=== PATIENT | female | born 1965 | race Caucasian/White ===

== ENCOUNTER 2024-09-07 09:57 | Emergency (ER) | payer OTHER, SELFPAY ==
[2024-09-07] VITALS (8 sets, daily range): BP systolic 157–174; BP diastolic 88–110; PULSE 91–118; RESP 18–19; TEMP 36.2–36.6; O2SAT 96–98; BMI 33.2
--- NOTE | ~2024-09-07 | CT_ITS ---
EXAMINATION: CT HEAD WITHOUT CONTRAST CLINICAL INFORMATION: Headache and dizziness. COMPARISON: None available. TECHNIQUE: Contiguous axial imaging was performed from the skull base to vertex without intravenous administration of contrast. This CT examination was performed using dose optimization techniques as appropriate, variously including the following: *Automated exposure control *Adjustment of mA and/or kV according to patient size (this includes techniques or standardized protocols for targeted exams where dose is matched to indication/reason for exam; i.e. extremities or head) *Use of iterative reconstruction technique FINDINGS: There is no evidence of intracranial hemorrhage or extra-axial fluid collection. There is no mass effect, or edema. No CT evidence of acute territorial infarct. Ventricles, sulci, and cisterns are normal in size and configuration for patient age. No hydrocephalus. No midline shift. Negative hyperdense MCA sign. Negative insular ribbon sign. No significant white matter abnormalities. Normal pituitary gland. Globes and orbital contents image normally. No extracranial soft tissue abnormalities. The paranasal sinuses, mastoid air cells, and tympanic cavities are normally aerated. No suspicious bony abnormalities. Mild hyperostosis frontalis. There are no acute fractures evident. CT/CT head/brain wo IV con IMPRESSION: No acute intracranial abnormality. Essentially normal examination. Electronically signed by: Marco Manning MD 09/07/2024 03:11 PM EDT
--- NOTE | ~2024-09-07 | XR_ITS ---
EXAMINATION: XR CHEST CLINICAL INFORMATION: Dizziness COMPARISON: None available. TECHNIQUE: Frontal view of the chest was obtained. FINDINGS: No significant abnormality is noted involving the heart, lungs, mediastinum, bony thorax or soft tissues. XR/XR chest 1V IMPRESSION: Unremarkable chest examination. Electronically signed by: Amanuel Martinez MD 09/07/2024 01:42 PM EDT RP
--- NOTE | 2024-09-07 10:24 | ECG_ITS ---
Test Reason : diziness Blood Pressure : */* mmHG Vent. Rate : 105 BPM Atrial Rate : 105 BPM P-R Int : 164 ms QRS Dur : 84 ms QT Int : 338 ms P-R-T Axes : 45 -19 49 degrees QTcB Int : 446 ms Sinus tachycardia Moderate voltage criteria for LVH, may be normal variant ( R in aVL , [place] product ) Borderline ECG When compared with ECG of 24-Apr-2012 20:40, MANUAL COMPARISON REQUIRED PREVIOUS ECG IS INCOMPATIBLE Referred By: Generic ED Physician Electronically Signed By: Yaya Solis
[2024-09-07] MEDS: 0.9 % Sodium Chloride 1,000 ML 999 ML IV (10:49)
[2024-09-07 10:52] LABS: MANUAL DIFF FLAG NO
[2024-09-07 10:54] LABS: Basophils Absolute Auto 0.1 X10*3/uL (0.0-0.2); Basophils Percent Auto 0.9 % (0-2); Eosinophils Absolute Auto 0.2 X10*3/uL (0.0-0.4); Eosinophils Percent Auto 2.6 % (0-4); Hematocrit 44.6 % (37.0-47.0); Imm Gran Abs Auto 0.03 X10*3/uL (0.00-0.03); Imm Gran Pct Auto 0.4 % (0.0-0.4); Lymphocytes Absolute Auto 2.8 X10*3/uL (1.2-4.9); Lymphocytes Percent Auto 37.3 % (20-40); Mean Corpuscular HGB Conc 35.9 g/dl (31.0-35.0); Mean Corpuscular Hemoglobin 32.6 pg (27.0-33.0); Mean Corpuscular Volume 90.8 fL (80.0-98.0); Mean Platelet Volume 10.1 fL (9.4-12.3); Monocytes Absolute Auto 0.5 X10*3/uL (0.1-1.2); Monocytes Percent Auto 7.3 % (2-11); Neutrophils Absolute Auto 3.8 x10*3/uL (2.0-8.3); Neutrophils Percent Auto 51.5 % (45-73); Platelet Count 151 X10*3/uL (160-400); Red Blood Count 4.91 X10*6/uL (4.20-5.50); Red Cell Distribution Width 12.6 % (11.0-16.0); White Blood Count 7.4 X10*3/uL (4.8-10.8)
[2024-09-07 11:10] LABS: Alanine Aminotransferase 73 U/L (0-31); Albumin Level 4.1 g/dL (3.5-5.0); Alkaline Phosphatase 159 U/L (39-117); Anion Gap 16 (12-20); Aspartate Amino Transferase 70 U/L (5-31); Bilirubin Direct 0.2 mg/dL (0.0-0.5); Bilirubin Total 0.8 mg/dL (0.0-1.0); Blood Urea Nitrogen 9 mg/dL (9-16); Calcium 9.6 mg/dL (8.4-10.2); Carbon Dioxide 23 mmol/L (22-29); Chloride 104 mmol/L (96-108); Creatinine Clr Calc Pharmacy 117.7; Estimated Glomerular Filt Rate > 60; Glucose Random 329 mg/dL (60-115); Lipase 72 U/L (8-78); Magnesium 1.5 mg/dL (1.6-2.6); Potassium 3.9 mmol/L (3.3-5.1); Sodium 139 mmol/L (135-145); Total Protein 7.5 g/dL (6.5-8.0)
[2024-09-07 11:31] LABS: Influenza A PCR NEGATIVE (Negative); Influenza B PCR NEGATIVE (Negative); Resp Syncy Virus RNA Qual PCR NEGATIVE (Negative); SARS COV2 PCR INHOUSE NEGATIVE (Negative)
[2024-09-07 12:19] LABS: Appearance Urine Cloudy; Color Urine Dark Yellow; Glucose Urine UA >=1000 mg/dL (Negative); Leukocyte Esterase Urine Negative (Negative); Nitrite Urine Negative (Negative); PH 5.5 (5.0-9.0); Specific Gravity - Urine >= 1.030 (1.005-1.025); UMIC TRIGGER UACC YES; Urine Blood Large (3+) (Negative); Urine Ketones 40 mg/dL (Negative); Urine Protein 100 (2+) mg/dL (Neg-Trace)
[2024-09-07 12:58] LABS: Bacteria Urine 4+ (None Seen); Hyaline Casts Urine 0-2 /LPF (0-2); RBC Urine 0-2 /HPF (0-2); UACC Culture Trigger YES
--- NOTE | 2024-09-07 12:58 | ED_ITS ---
HPI - Dizziness General Chief Complaint: Dizziness Stated Complaint: dizziness/ Vertigo Time Seen by Provider: 09/07/24 12:41 Source: patient, EMS, RN notes reviewed and old records reviewed Mode of arrival: EMS History of Present Illness ED Provider: Asia Manning PA-C HPI Narrative: 59-year-old female with a past medical history of diabetes, presenting to the ED via EMS complaining of dizziness described as room spinning and lightheadedness, nausea, and headache x 3 days. States dizziness worse with position changes, improves with rest. Admits ran out of her Cymbalta on , has missed 4 days, states she called to have refill however they need to contact her doctor. Also reports difficulty controlling her sugars, states POC is has been in the 300s despite compliance with medications. Denies vision change or loss, vomiting, diarrhea, CP/SOB, dysuria/hematuria, travel, ear pain Related Data Previous Rx's ?Medication ?Instructions ?Recorded meclizine 25 mg tablet 25 mg PO TID PRN dizziness #14 tabs 09/07/24 Allergies Allergy/AdvReac Type Severity Reaction Status Date / Time latex [LATEX] Allergy Mild RASH Verified 09/07/24 10:35 Sulfa (Sulfonamide Allergy Unknown HIVES Verified 09/07/24 10:35 Antibiotics) [SULFA(SULFONAMIDE ANTIBIOTICS)] sulfa Allergy Unknown rash Uncoded 01/24/18 00:00 Review of Systems 2 Review of Systems: Yes all other systems are reviewed and are negative Constitutional: Constitutional: Reports as per HPI Neurologic: Denies Abnormal speech present [facility] Past Medical History Attestation statement: The following information was validated with the patient. Source: old records reviewed Physical Exam 2 Vital Signs: Vital Signs: Last Vital Signs Temp 98 F 09/07/24 15:51 Pulse 91 09/07/24 15:51 Resp 19 09/07/24 15:51 BP 157/88 H 09/07/24 15:51 Pulse Ox 97 09/07/24 15:51 O2 Del Method Room Air 09/07/24 15:51 BMI result Body Mass Index 33.2 Const: General: cooperative, healthy appearing and no acute distress O rientation/consciousness: patient oriented x3 Limitations: no limitations HEENT: Head: Yes normal to inspection and Yes atraumatic Ears: hearing grossly normal bilaterally General nose exam: Normal external nose present Face and sinus: Yes normal facial exam Eyes: General: appearance normal, both eyes and all related structures P upils: Equal, round and reactive pupils present EOM: EOMs intact bilaterally and Nystagmus present Neck: Neck: Yes normal visual inspection and Yes no meningeal signs Resp: Effort & Inspection: normal respiratory effort and no respiratory distress Auscultation: clear to auscultation bilaterally Cardio: Rate: regular rate Heart sounds: S1 normal heart sound present and S2 normal heart sound present GI: Inspection: Yes normal to inspection Palpation (GI): Soft to palpation, nontender, no guarding and not rigid : General: Yes no CVA tenderness Back/Spine/Pelvis: Back: no CVA tenderness Skin: Rashes: no rashes Wounds: no wounds Neuro: General: patient oriented x3, tone normal, moves all extremities, no meningeal signs, no focal motor deficits and CN's II-XI intact bilaterally C ranial nerves: Yes CN's II-XII intact bilaterally, Yes Equal, round and reactive pupils present, Yes Bilaterally intact EOM present and Yes Nystagmus present horizontal fast component to the right Cognition (Neuro): normal cognition Speech: No Abnormal speech present Gait exam (Neuro): Normal gait present Motor exam (neuro): 5/5 motor strength present throughout, Pronator motor function not present and no tremor noted Extrem: General: Yes normal to inspection Course Course Course Narrative: Spoke with patient's pharmacy, [facility]. Patient filled a 3 month supply of 60 mg of Cymbalta on 05/18/2024. 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 Magnesium slightly low 1.5 > p.o. repletion given. AST/ALT mildly elevated. -UA with blood, not infected -viral testing negative XR chest 1V IMPRESSION: Unremarkable chest examination. CT head/brain wo IV con IMPRESSION: No acute intracranial abnormality. Essentially normal examination. -orthostatic vital signs negative -1537--on re-evaluation patient reports symptomatic improvement. Feels comfortable for discharge home at this time. Results discussed with patient including worrisome signs and symptoms and strict return precautions, and when to return to the emergency department. They verbalized understanding and feel safe for discharge at this time. Medications Administered Discontinued Medications Generic Name Dose Route Start Last Admin Trade Name Hilary PRN Reason Stop Dose Admin Acetaminophen/Butalbital/Caffeine 1 tab 09/07/24 13:46 09/07/24 14:06 Butalb/Acetamin/Caff 50/325/40 Tablet PO 09/07/24 13:47 1 tab ONCE ONE Administration Duloxetine HCl 60 mg 09/07/24 13:05 09/07/24 13:45 Duloxetine Hcl 60 Mg Capsule. PO 09/07/24 13:06 60 mg ONCE ONE Administration Sodium Chloride 1,000 mls @ 999 mls/hr 09/07/24 10:45 09/07/24 12:00 Ns IV 09/07/24 11:45 Infused .Q1H1M CHRISTINE Infusion Magnesium Oxide 800 mg 09/07/24 15:32 09/07/24 15:47 Magnesium Oxide 400 Mg Tablet PO 09/07/24 15:33 800 mg ONCE ONE Administration Meclizine HCl 25 mg 09/07/24 12:55 09/07/24 13:45 Meclizine Hcl 25 Mg Tablet PO 09/07/24 12:56 25 mg ONCE ONE Administration Medical Decision Making Medical Decision Making [facility] Narrative: 59-year-old female with a past medical history of diabetes, presenting to the ED via EMS complaining of dizziness described as room spinning and lightheadedness, nausea, and headache x 3 days. States dizziness worse with position changes, improves with rest. Admits ran out of her Cymbalta. On exam tachycardic, NAD, nontoxic appearing, horizontal nystagmus noted to the right inducing dizziness. No focal neuro deficits. Concern for BPPV vs Cymbalta withdrawal/abrupt cessation vs metabolic abnormalities vs complicated migraine headache. Rule out hyperglycemia/DKA. Lower suspicion for ICH, meningitis/encephalitis, CVA/TIA, ACS or PE. Low suspicion for severe sepsis Plan: EKG, labs, UA, CXR, head CT, orthostatics, meclizine, Cymbalta, re- evaluate Please refer to course for remaining clinical decision making, interpretation of labs/imaging results, and discussions with consultants and/or family members. Differential Diagnosis Differential Diagnoses: The differential diagnosis associated with the presentation includes As above Admission/Observation Consideration of admission/observation: Escalation of care including admission/observation considered Lab Data [facility] Lab Attestation statement: I reviewed the patient's lab results. 09/07/24 10:46 09/07/24 10:46 Labs: Lab Results 09/07/24 09/07/24 Range/Units 10:46 12:09 WBC 7.4 (4.8-10.8) X10*3/uL RBC 4.91 (4.20-5.50) X10*6/uL Hgb 16.0 (12.0-16.0) g/dl Hct 44.6 (37.0-47.0) % MCV 90.8 (80.0-98.0) fL MCH 32.6 (27.0-33.0) pg MCHC 35.9 H (31.0-35.0) g/dl RDW 12.6 (11.0-16.0) % Plt Count 151 L (160-400) X10*3/uL MPV 10.1 (9.4-12.3) fL Immature Gran % (Auto) 0.4 (0.0-0.4) % Neut % (Auto) 51.5 (45-73) % Lymph % (Auto) 37.3 (20-40) % [place] % (Auto) 7.3 (2-11) % Eos % (Auto) 2.6 (0-4) % Baso % (Auto) 0.9 (0-2) % Lymph # (Auto) 2.8 (1.2-4.9) X10*3/uL [place] # (Auto) 0.5 (0.1-1.2) X10*3/uL Eos # (Auto) 0.2 (0.0-0.4) X10*3/uL Baso # (Auto) 0.1 (0.0-0.2) X10*3/uL Abs Immat Gran (auto) 0.03 (0.00-0.03) X10*3/uL Absolute Neuts (auto) 3.8 (2.0-8.3) x10*3/uL Absolute Nucleated RBC 0.000 (0.0-0.012) X10*3/uL Nucleated RBC % (auto) 0.0 (0.0-0.2) /100WBC Sodium 139 (135-145) mmol/L Potassium 3.9 (3.3-5.1) mmol/L Chloride 104 (96-108) mmol/L Carbon Dioxide 23 (22-29) mmol/L Anion Gap 16 (12-20) BUN 9 (9-16) mg/dL Creatinine 0.62 (0.5-1.4) mg/dL Estim Creat Clear Calc 117.7 Estimated GFR > 60 Random Glucose 329 H (60-115) mg/dL Calcium 9.6 (8.4-10.2) mg/dL Magnesium 1.5 L (1.6-2.6) mg/dL Total Bilirubin 0.8 (0.0-1.0) mg/dL Direct Bilirubin 0.2 (0.0-0.5) mg/dL AST 70 H (5-31) U/L ALT 73 H (0-31) U/L Alkaline Phosphatase 159 H (39-117) U/L Total Protein 7.5 (6.5-8.0) g/dL Albumin 4.1 (3.5-5.0) g/dL Lipase 72 (8-78) U/L Urine Color Dark Yellow Urine Appearance Cloudy Urine pH 5.5 (5.0-9.0) Ur Specific [place] >= 1.030 H (1.005-1.025) Urine Protein 100 (2+) H (Neg-Trace) mg/dL Urine Glucose (UA) >=1000 H (Negative) mg/dL Urine Ketones 40 (Negative) mg/dL Urine Blood Large (3+) H (Negative) Urine Nitrite Negative (Negative) Ur Leukocyte Esterase Negative (Negative) Urine RBC 0-2 (0-2) /HPF Urine WBC 6-10 (0-5) /HPF Ur Squamous Epith Cells 6-10 (0-2) /HPF Urine Bacteria 4+ (None Seen) Hyaline Casts 0-2 (0-2) /LPF Influenza Type A (PCR) NEGATIVE (Negative) Influenza Type B (PCR) NEGATIVE (Negative) RSV RNA Qual (PCR) NEGATIVE (Negative) SARS-CoV-2 RNA (RT-PCR) NEGATIVE (Negative) Independent Interpretation I performed an independent interpretation of an: EKG, Plain X-Ray and CT Scan Interpretation: my interpretation: EKG Sinus tachycardia rate 105, NE interval 164. QTC 446. No STEMI Radiology Impression Discussion of test interpretation with radiology: I have reviewed the radiologist's reading. Independent Historian Clinical information obtained from an independent historian. History obtained from or confirmed by: EMS External Record Review External record reviewed: Inpatient record, Office record, Outpatient record, Prior outpatient labs, Prior outpatient radiology, Primary care record and Outside ED record Tests considered The following testing was considered but not selected: As above Prescription Management I considered prescription management with: Other Chronic Conditions Patient?s care impacted by: Diabetes Social Determinants Patient?s care significantly limited by Social Determinants of Health including: Other Social Determinant of Health Discharge Plan Discharge Clinical Impression: Medication withdrawal, Vertigo Patient Disposition: Home, Self-Care Instructions: Vertigo (DC) Additional Instructions: Your blood work, cat scan, urine, and viral testing were all reassuring Please have close follow-up with your provider, continue home prescribed medications, avoid missing doses of your Cymbalta Meclizine is for dizziness, take as needed for room spinning dizziness If her symptoms persist, worsen, or constant, you have persistent or worsening headache, vision change or loss, weakness or fever return to the ED Your prescription for Cymbalta should be ready at the pharmacy for pickup Prescriptions: New meclizine 25 mg tablet 25 mg PO TID PRN (Reason: dizziness) Qty: 14 0RF Referrals: Yariel Cabrera PA-C [Primary Care Provider] - 5 days Interventions: ED Discharge Assessment Last Done: 09/07/24 15:51 Discharge Date/Time: 09/07/24 15:52 Print Language: Mauritian
[2024-09-07] MEDS: Meclizine HCl 25 MG TABLET PO (13:45)
[2024-09-07] MEDS: DULoxetine HCl 60 MG CAPSULE.DR PO (13:45)
[2024-09-07] MEDS: Butalb/Acetamin/Caff 50/325/40 TABLET 1 TAB PO (14:06)
--- NOTE | 2024-09-07 15:10 | PC.NURSE ---
Pt reports feeling much better, denies dizziness currently.
[2024-09-07] MEDS: Magnesium Oxide 400 MG TABLET 800 MG PO (15:47)
== END 2024-09-07 15:52 | disposition home or self-care (01) ==
PROVIDERS: Emergency Provider Emergency Medicine Emergency Medical Services; PCP Physician Assistant Surgical
DX: R42 Dizziness and giddiness (principal); R11.0 Nausea; F19.939 Other psychoactive substance use, unspecified with withdrawal, unspecified; R51.9 Headache, unspecified; R00.0 Tachycardia, unspecified; Z79.899 Other long term (current) drug therapy; Z03.818 Encounter for observation for suspected exposure to other biological agents ruled out
CPT/HCPCS: 0241U; 70450; 71045; 80048; 80076; 81001; 83690; 83735; 85025; 87086; 87088; 87186; 93005; 96360; 99284; 99285

== ENCOUNTER → 2024-09-07 10:24 | Outpatient (BNV) | payer OTHER, SELFPAY | PROVIDERS: Emergency Provider Emergency Medicine Emergency Medical Services; PCP Physician Assistant Surgical; Visit Provider Internal Medicine Cardiovascular Disease | DX: R00.0 Tachycardia, unspecified (principal) | CPT/HCPCS: 93010 ==

== ENCOUNTER → 2024-09-07 13:09 | Outpatient (BNV) | payer OTHER, SELFPAY | PROVIDERS: Emergency Provider Emergency Medicine Emergency Medical Services; PCP Physician Assistant Surgical; Visit Provider Radiology Diagnostic Radiology | DX: R51.9 Headache, unspecified (principal); R42 Dizziness and giddiness | CPT/HCPCS: 70450; 71045 ==